=== PATIENT | female | born 1960 | race Two or more races ===

== ENCOUNTER 2019-04-18 00:05 | Inpatient (IN) | payer MEDICAID, OTHER ==
[~2019-04-18] VITALS: Ht 167.6 cm; Wt 58.1 kg
[2019-04-18 02:46] LABS: BASOPHILS % (AUTO) 0.8 % (0.0-2.0); EOSINOPHILS % (AUTO) 2.9 % (1.0-6.0); HEMATOCRIT 41.6 % (36-46); HEMOGLOBIN 13.8 g/dL (12.0-16.0); LYMPHOCYTES # (AUTO) 2.7 K/uL (1.0-4.8); LYMPHOCYTES % (AUTO) 32.7 % (22.0-44.0); MEAN CORPUSCULAR HEMOGLOBIN 32.8 pg (26.0-34.0); MEAN CORPUSCULAR HGB CONC 33.1 G/dL (31.0-37.0); MEAN CORPUSCULAR VOLUME 99 fL (80-100); MONOCYTES # (AUTO) 0.5 K/uL (0.1-1.0); MONOCYTES % (AUTO) 5.8 % (2.0-9.0); NEUTROPHILS # (AUTO) 4.8 K/uL (1.8-7.7); NEUTROPHILS % (AUTO) 57.8 % (40.0-70.0); PLATELET COUNT (AUTO) 282 K/uL (150-450); RED BLOOD CELL COUNT(AUTO) 4.19 MIL/uL (4.00-5.20); RED CELL DISTRIBUTION WIDTH 13.6 % (11.5-14.5)
[2019-04-18 03:01] LABS: ANION GAP 7 mmol/L (8-16); CALCIUM, TOTAL 9.2 mg/dL (8.8-10.5); CARBON DIOXIDE 31 mmol/L (22-29); CHLORIDE 101 mmol/L (98-107); CREATININE 0.79 mg/dL (0.60-1.30); GLOMERULAR FILTR. RATE CALC > 60 mL/min (>60); GLUCOSE,RANDOM 103 mg/dL (70-110); POTASSIUM 3.8 mmol/L (3.5-5.1); SODIUM SERUM 139 mmol/L (136-145); UREA NITROGEN, BLOOD 10 mg/dL (7-18)
[2019-04-18 03:07] LABS: ALANINE AMINOTRANSFERASE 16 U/L (12-78); ALBUMIN 4.1 g/dL (3.4-5.0); ALKALINE PHOSPHATASE 87 U/L (46-116); ASPARTATE AMINOTRANSFERASE 15 U/L (15-37); BILIRUBIN,TOTAL 0.3 mg/dL (0.1-1.0); TOTAL PROTEIN, SERUM 7.6 g/dL (6.4-8.2)
[2019-04-18] MEDS ORDERED: LORazepam 2 MG TABLET PO PRN (06:00)
[2019-04-18] MEDS ORDERED: HALOPERIDOL 5 MG TABLET PO PRN (06:00)
[2019-04-18] MEDS ORDERED: ZOLPIDEM TARTRATE 10 MG TABLET PO PRN (06:00)
[2019-04-18 06:23] VITALS: BP 135/90
[2019-04-18] MEDS ORDERED: GuaiFENesin/D-METHORPHAN [SUGAR-FREE] 200-20MG/10 ML SYRUP UDCUP PO PRN (06:30)
[2019-04-18] MEDS ORDERED: LOPERAMIDE HCL 2 MG CAPSULE PO PRN (06:30)
[2019-04-18] MEDS ORDERED: MAG HYDROX/AL HYDROX/SIMETH ES 30 ML SUSPENSION UDCUP PO PRN (06:30)
[2019-04-18] MEDS ORDERED: ONDANSETRON HCL 4 MG TABLET PO PRN (06:30)
[2019-04-18] MEDS ORDERED: NICOTINE 14 MG/24 HOUR PATCH TD PRN (06:30)
[2019-04-18] MEDS ORDERED: ALBUTEROL SULFATE HFA 90 MCG/PUFF 8 GM INHALER IH PRN (06:30)
[2019-04-18] MEDS ORDERED: MAGNESIUM HYDROXIDE SUSPENSION 30 ML UDCUP PO PRN (06:30)
[2019-04-18] MEDS ORDERED: CloNIDine HCL 0.1 MG TABLET PO PRN (06:30)
[2019-04-18] MEDS ORDERED: DOCUSATE SODIUM 100 MG CAPSULE PO PRN (06:30)
[2019-04-18] MEDS ORDERED: PETROLATUM,WHITE 28 GM JELLY TP PRN (06:30)
[2019-04-18 11:31] VITALS: BP 141/106
[2019-04-18] MEDS: ACETAMINOPHEN 325 MG TABLET PO PRN (11:31)
[2019-04-18] MEDS: AmLODIPine BESYLATE 5 MG TABLET PO SCH (13:21)
[2019-04-18] MEDS: SERTRALINE HCL 50 MG TABLET PO SCH (15:05)
[2019-04-18] MEDS: ARIPiprazole 5 MG TABLET PO SCH (15:05)
[2019-04-18 16:48] VITALS: BP 95/67
[2019-04-19 08:49] VITALS: BP 107/77
[2019-04-19 10:03] VITALS: BP 107/77
[2019-04-19] MEDS: DiphenhydrAMINE HCL 25 MG CAPSULE PO PRN ×2 (10:03→20:17)
[2019-04-19] MEDS: ACETAMINOPHEN 325 MG TABLET PO PRN ×2 (10:03→19:10)
[2019-04-19] MEDS: ARIPiprazole 5 MG TABLET PO SCH (10:03)
[2019-04-19] MEDS: SERTRALINE HCL 50 MG TABLET PO SCH (10:03)
[2019-04-19] MEDS: AmLODIPine BESYLATE 5 MG TABLET PO SCH (10:04)
[2019-04-19] MEDS ORDERED: SERT50TA12 PO (15:43)
[2019-04-19] MEDS ORDERED: ARIP5TAB8 PO (15:43)
[2019-04-19] MEDS ORDERED: AMLO5TAB9 PO (15:45)
[2019-04-19 19:09] VITALS: BP 119/69
[2019-04-20 03:49] VITALS: BP 118/74
[2019-04-20] MEDS: ACETAMINOPHEN 325 MG TABLET PO PRN (03:54)
== END 2019-04-20 06:58 | DRG 750 ==
LOC: EMS 00:08 → 3EI 05:30
DX: F25.0 Schizoaffective disorder, bipolar type (principal); R45.851 Suicidal ideations; Z59.0 Homelessness; F12.10 Cannabis abuse, uncomplicated; R03.0 Elevated blood-pressure reading, without diagnosis of hypertension; R10.13 Epigastric pain; G43.909 Migraine, unspecified, not intractable, without status migrainosus; F41.9 Anxiety disorder, unspecified; Z79.899 Other long term (current) drug therapy
CPT/HCPCS: 87081; G0480

== ENCOUNTER → 2020-01-09 | Emergency (ER) | payer MEDICAID, OTHER ==
[~2020-01-09] VITALS: Ht 160 cm; Wt 50.0 kg
[~2020-01-09] MED LIST: AMLO5TAB9 PO; ARIP5TAB8 PO; SERT50TA12 PO
[2020-01-09 20:56] LABS: BASOPHILS % (AUTO) 0.7 % (0.0-2.0); EOSINOPHILS % (AUTO) 2.8 % (1.0-6.0); HEMATOCRIT 40.9 % (36-46); HEMOGLOBIN 13.8 g/dL (12.0-16.0); LYMPHOCYTES # (AUTO) 2.4 K/uL (1.0-4.8); LYMPHOCYTES % (AUTO) 42.2 % (22.0-44.0); MEAN CORPUSCULAR HEMOGLOBIN 32.6 pg (26.0-34.0); MEAN CORPUSCULAR HGB CONC 33.9 G/dL (31.0-37.0); MEAN CORPUSCULAR VOLUME 96 fL (80-100); MONOCYTES # (AUTO) 0.4 K/uL (0.1-1.0); MONOCYTES % (AUTO) 6.9 % (2.0-9.0); NEUTROPHILS # (AUTO) 2.7 K/uL (1.8-7.7); NEUTROPHILS % (AUTO) 47.4 % (40.0-70.0); PLATELET COUNT (AUTO) 257 K/uL (150-450); RED BLOOD CELL COUNT(AUTO) 4.24 MIL/uL (4.00-5.20); RED CELL DISTRIBUTION WIDTH 13.1 % (11.5-14.5)
[2020-01-09 21:03] LABS: ANION GAP 9 mmol/L (8-16); CALCIUM, TOTAL 8.9 mg/dL (8.8-10.5); CARBON DIOXIDE 27 mmol/L (22-29); CHLORIDE 103 mmol/L (98-107); CREATININE 0.64 mg/dL (0.60-1.30); GLOMERULAR FILTR. RATE CALC > 60 mL/min (>60); GLUCOSE,RANDOM 100 mg/dL (70-110); SODIUM SERUM 139 mmol/L (136-145); UREA NITROGEN, BLOOD 8 mg/dL (7-18)
[2020-01-09 22:22] VITALS: BP 128/81
== END | disposition home or self-care (01) ==
LOC: EMS 19:49
DX: R07.89 Other chest pain (principal); F41.9 Anxiety disorder, unspecified; R06.02 Shortness of breath; R42 Dizziness and giddiness; F31.9 Bipolar disorder, unspecified; F20.9 Schizophrenia, unspecified; Z88.0 Allergy status to penicillin; Z88.6 Allergy status to analgesic agent
CPT/HCPCS: 93005

== ENCOUNTER 2021-04-29 15:29 | Emergency (ER) | payer OTHER ==
[~2021-04-29] VITALS: Ht 167.6 cm; Wt 50.0 kg
[~2021-04-29 15:29] MED LIST changes: +AMLO-257 PO; -AMLO5TAB9 PO; +ARIP5TAB37 PO; -ARIP5TAB8 PO; +SERT-158 PO; -SERT50TA12 PO
[2021-04-29 15:42] VITALS: BP 130/80
== END 2021-04-29 18:10 | disposition home or self-care (01) ==
LOC: EMS 15:32
DX: T21.15XA Burn of first degree of buttock, initial encounter (principal); T20.112A Burn of first degree of left ear [any part, except ear drum], initial encounter; T20.10XA Burn of first degree of head, face, and neck, unspecified site, initial encounter; T20.17XA Burn of first degree of neck, initial encounter; T22.151A Burn of first degree of right shoulder, initial encounter; F41.9 Anxiety disorder, unspecified; F31.9 Bipolar disorder, unspecified; F20.9 Schizophrenia, unspecified; Z88.0 Allergy status to penicillin; Z88.6 Allergy status to analgesic agent; X08.8XXA Exposure to other specified smoke, fire and flames, initial encounter; Y93.89 Activity, other specified; Y92.89 Other specified places as the place of occurrence of the external cause; Y99.8 Other external cause status
CPT/HCPCS: 99283; Z7502

== ENCOUNTER 2021-05-02 11:12 | Emergency (ER) | payer OTHER ==
[~2021-05-02] VITALS: Ht 167.6 cm; Wt 50.0 kg
[2021-05-02] MEDS ORDERED: BACITRACIN 0.9 GM PACKET OINTMENT TP ONE (12:15)
[2021-05-02 12:51] VITALS: BP 123/75
== END 2021-05-02 12:55 | disposition home or self-care (01) ==
LOC: EMS 11:20
DX: T22.10XA Burn of first degree of shoulder and upper limb, except wrist and hand, unspecified site, initial encounter (principal); F20.9 Schizophrenia, unspecified; F31.9 Bipolar disorder, unspecified; F41.9 Anxiety disorder, unspecified; Z88.0 Allergy status to penicillin; Z88.6 Allergy status to analgesic agent; Z79.899 Other long term (current) drug therapy; X08.8XXA Exposure to other specified smoke, fire and flames, initial encounter; Y93.89 Activity, other specified; Y92.89 Other specified places as the place of occurrence of the external cause; Y99.8 Other external cause status
CPT/HCPCS: 16020; 99283

== ENCOUNTER 2022-05-29 14:50 | Emergency (ER) | payer OTHER ==
[~2022-05-29] VITALS: Ht 160 cm; Wt 48.6 kg
[2022-05-29 17:19] LABS: COVID AG,FIA SOURCE NASOPHARYNGEAL
[2022-05-29 17:23] LABS: BASOPHILS % (AUTO) 0.9 % (0.0-2.0); EOSINOPHILS % (AUTO) 4.3 % (1.0-6.0); HEMATOCRIT 42.5 % (36-46); HEMOGLOBIN 14.3 g/dL (12.0-16.0); LYMPHOCYTES # (AUTO) 2.3 K/uL (1.0-4.8); LYMPHOCYTES % (AUTO) 28.5 % (22.0-44.0); MEAN CORPUSCULAR HEMOGLOBIN 32.2 pg (26.0-34.0); MEAN CORPUSCULAR HGB CONC 33.8 G/dL (31.0-37.0); MEAN CORPUSCULAR VOLUME 95 fL (80-100); MONOCYTES # (AUTO) 0.6 K/uL (0.1-1.0); MONOCYTES % (AUTO) 7.2 % (2.0-9.0); NEUTROPHILS # (AUTO) 4.8 K/uL (1.8-7.7); NEUTROPHILS % (AUTO) 59.1 % (40.0-70.0); PLATELET COUNT (AUTO) 311 K/uL (150-450); RED BLOOD CELL COUNT(AUTO) 4.46 MIL/uL (4.00-5.20); RED CELL DISTRIBUTION WIDTH 13.4 % (11.5-14.5)
[2022-05-29 17:31] LABS: ANION GAP 8 mmol/L (8-16); CARBON DIOXIDE 30 mmol/L (22-29); CHLORIDE 101 mmol/L (98-107); CREATININE 0.66 mg/dL (0.60-1.30); GLUCOSE,RANDOM 85 mg/dL (70-110); POTASSIUM 3.9 mmol/L (3.5-5.1); SODIUM SERUM 139 mmol/L (136-145); UREA NITROGEN, BLOOD 7 mg/dL (7-18)
[2022-05-29 17:32] LABS: GLOMERULAR FILTR. RATE CALC > 60 mL/min (>60)
[2022-05-29 17:37] LABS: ALANINE AMINOTRANSFERASE 14 U/L (12-78); ALBUMIN 3.7 g/dL (3.4-5.0); ALKALINE PHOSPHATASE 89 U/L (46-116); ASPARTATE AMINOTRANSFERASE 12 U/L (15-37); BILIRUBIN,TOTAL 0.3 mg/dL (0.1-1.0); TOTAL PROTEIN, SERUM 7.5 g/dL (6.4-8.2)
[2022-05-29] MEDS: ALBUTEROL SULFATE 2.5 MG/0.5 ML NEB SOLUTION NEB ONE (18:19)
[2022-05-29] MEDS: IPRATROPIUM BROMIDE 0.5 MG/2.5 ML NEB SOLUTION NEB ONE (18:19)
[2022-05-29] MEDS: SODIUM CHLORIDE 0.9% 500 ML IV ONE (18:45)
[2022-05-29 20:00] VITALS: BP 99/67
== END 2022-05-29 20:15 | disposition home or self-care (01) ==
LOC: EMS 14:53
DX: R07.9 Chest pain, unspecified (principal); F20.9 Schizophrenia, unspecified; F41.9 Anxiety disorder, unspecified; F31.9 Bipolar disorder, unspecified; F17.210 Nicotine dependence, cigarettes, uncomplicated; F12.90 Cannabis use, unspecified, uncomplicated; Z86.79 Personal history of other diseases of the circulatory system; Z88.0 Allergy status to penicillin; Z88.8 Allergy status to other drugs, medicaments and biological substances; Z20.822 Contact with and (suspected) exposure to COVID-19
CPT/HCPCS: 99285; 96360; 71045; 87426; 80053; 84484; 85025; 36415; 94640; 93005; J7040; J7613

== ENCOUNTER 2024-09-03 10:38 | Emergency (ER) | payer OTHER ==
[~2024-09-03] VITALS: Ht 160 cm; Wt 52.3 kg
[2024-09-03 11:00] LABS: COVID AG,FIA SOURCE NASAL SWAB
[2024-09-03 11:24] LABS: INFLUENZA TYPE A NEGATIVE FOR TYPE A (NEGATIVE); INFLUENZA TYPE B NEGATIVE FOR TYPE B (NEGATIVE); SARS-COV2 (COVID) ANTIGEN,FIA Negative (Negative)
[2024-09-03 12:38] VITALS: TEMP 98.9
[2024-09-03] MEDS ORDERED: BENZ-227 PO (14:25)
[2024-09-03] MEDS ORDERED: ACET-3385 PO (14:25)
[2024-09-03 14:30] VITALS: BP 124/71; PULSE 90; RESP 18; O2SAT 97
[2024-09-03] MEDS: ACETAMINOPHEN 500 MG TABLET PO ONE (14:35)
[2024-09-03] MEDS: BENZONATATE 100 MG CAPSULE PO ONE (14:35)
== END 2024-09-03 15:02 | disposition home or self-care (01) ==
LOC: EMS 10:45
DX: J06.9 Acute upper respiratory infection, unspecified (principal); B97.89 Other viral agents as the cause of diseases classified elsewhere; F41.9 Anxiety disorder, unspecified; F31.9 Bipolar disorder, unspecified; F20.9 Schizophrenia, unspecified; F17.210 Nicotine dependence, cigarettes, uncomplicated; F12.90 Cannabis use, unspecified, uncomplicated; Z79.899 Other long term (current) drug therapy; Z88.0 Allergy status to penicillin; Z88.6 Allergy status to analgesic agent; Z20.822 Contact with and (suspected) exposure to COVID-19
CPT/HCPCS: 87804; 99283